=== PATIENT | male | born 1985 | race African-American/Black ===

== ENCOUNTER 2017-12-08 17:52 | Emergency (ER) | payer MEDICAID ==
[~2017-12-08] VITALS: Ht 170.2 cm; Wt 95.0 kg
[2017-12-08 17:57] VITALS: BP 148/117
[2017-12-08] MEDS ORDERED: TETANUS AND DIPHTHERIA TOX/PF 0.5ML SYR (ADULT) IM ONE (18:15)
[2017-12-08] MEDS ORDERED: LIDOCAINE HCL/EPINEPHRINE 1%-EPI 1:100,000 30 ML VIAL INFIL ONE (18:15)
[2017-12-08] MEDS ORDERED: BACITRACIN ZINC OINT UDPKT TOP ONE (19:45)
== END 2017-12-08 21:09 | disposition home or self-care (01) ==
LOC: ER 21:03
DX: S51.812A Laceration without foreign body of left forearm, initial encounter (principal); Y08.89XA Assault by other specified means, initial encounter; Y93.89 Activity, other specified; Y92.488 Other paved roadways as the place of occurrence of the external cause
CPT/HCPCS: 12002; 73090; 90471; 90714; 99284

== ENCOUNTER 2017-12-27 15:27 | Emergency (ER) | payer MEDICAID ==
[~2017-12-27] VITALS: Ht 175.3 cm; Wt 72.0 kg
[2017-12-27 16:17] VITALS: BP 140/82
== END 2017-12-27 16:34 | disposition home or self-care (01) ==
LOC: ER 15:34
DX: Z48.01 Encounter for change or removal of surgical wound dressing (principal); R03.0 Elevated blood-pressure reading, without diagnosis of hypertension
CPT/HCPCS: 99281; Z7610